=== PATIENT | male | born 1960 | race Caucasian/White ===

== ENCOUNTER 2016-11-24 12:32 | Emergency (ER) | payer OTHER ==
[~2016-11-24] VITALS: Ht 182.9 cm; Wt 128.5 kg
[2016-11-24 12:35] VITALS: Ht 182.9 cm; Wt 128.5 kg
--- NOTE | 2016-11-24 14:07 | RADRPT ---
PROCEDURE: XR Lumbar Spine. CLINICAL INDICATION: Lower back pain. TECHNIQUE: AP, lateral and cone-down lateral views of the lumbar spine were obtained. COMPARISON: No prior studies are available for comparison. FINDINGS: There is normal vertebral mineralization and alignment. No fracture or subluxation is seen. The disc spaces are normal in appearance. The posterior elements are unremarkable. The soft tissues appear n ormal. Diffuse mild degenerative changes are noted. IMPRESSION: No acute fracture or dislocation. Diffuse, mild, degenerative disk disease. RPTAT: PP .Genna Matthew MD, MD Date Time Electronically viewed and signed by .Genna Matthew MD, MD on 11/24/2016 14:06 .F/
[2016-11-24] MEDS ORDERED: HYDR-902 PO (14:13)
[2016-11-24] MEDS ORDERED: METH500T PO (14:13)
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
== END 2016-11-24 14:37 | disposition home or self-care (01) ==
LOC: FTE 12:32
DX: S39.012A Strain of muscle, fascia and tendon of lower back, initial encounter (principal); E11.9 Type 2 diabetes mellitus without complications; V89.2XXA Person injured in unspecified motor-vehicle accident, traffic, initial encounter
CPT/HCPCS: 72100; Z7502